=== PATIENT | female | born 1950 | race American Indian/Alaskan Native ===

== ENCOUNTER 2024-05-27 07:20 | Emergency (ER) | payer OTHER ==
[2024-05-27 07:29] VITALS: RESP 18; TEMP 98.6; BMI 28.0
[2024-05-27] MEDS ORDERED: ALBUTEROL SO4 2.5/IPRATROPIUM 0.5 INH SOL 3 ML VIAL.NEB. NEB ONE (07:48)
[2024-05-27] MEDS ORDERED: DEXAMETHASONE SOD PHOSPHATE 10 MG/1 ML VIAL ONE (07:48)
[2024-05-27 08:37] LABS: ABSOLUTE IMMATURE GRANULOCYTES 0.01 x10^3/uL (0.0-0.031); BASOPHILS # 0.05 x10^3/uL (0.01-0.08); EOSINOPHIL % 3.6 % (0.7-5.8); EOSINOPHILS # 0.35 x10^3/uL (0.04-0.36); HEMATOCRIT 42.7 % (34.1-44.9); HEMOGLOBIN 13.7 g/dL (11.2-15.7); MCHC 32.1 g/dl (32.2-35.5); MEAN CELL VOLUME 84.9 fl (79.4-94.8); MEAN PLT VOLUME 9.3 fl (9.4-12.3); MONOCYTE % 4.1 % (4.7-12.5); PLATELET COUNT 260 x10^3/uL (182-369); RDW 13.2 % (12.4-16.6)
[2024-05-27] MEDS: DEXAMETHASONE 4 MG TABLET (FP) PO ONE (08:38)
[2024-05-27] MEDS: ALBUTEROL SO4 2.5/IPRATROPIUM 0.5 INH SOL 3 ML VIAL.NEB. NEB ONE (08:38)
[2024-05-27 09:01] LABS: POTASSIUM 3.5 mmol/L (3.5-5.1)
[2024-05-27 09:03] LABS: CALCIUM 9.3 mg/dL (8.5-10.1)
[2024-05-27 09:04] LABS: ALBUMIN 3.6 g/dl (3.4-5.0); BLOOD UREA NITROGEN 13.8 mg/dL (7-18); MAGNESIUM 2.2 mg/dL (1.8-2.4)
[2024-05-27 09:07] LABS: CREATININE 0.7 mg/dL (0.55-1.3)
[2024-05-27 09:08] LABS: BILIRUBIN,TOTAL 0.5 mg/dL (0.2-1); TOT PROT 7.5 g/dl (6.4-8.2)
[2024-05-27] MEDS ORDERED: ASPIRIN 81 MG CHEWABLE TABLETS ONE (09:21)
[2024-05-27] MEDS: SODIUM CHLORIDE 1,000 ML IV STA (09:30)
[2024-05-27] MEDS: ASPIRIN 81 MG CHEWABLE TABLETS PO ONE (09:31)
[2024-05-27 09:49] LABS: INR 1.03 (0.83-1.09); PROTHROMBIN TIME (PATIENT) 11.2 SEC (9.7-13.0)
[2024-05-27] MEDS ORDERED: HEPARIN NA (PORCINE) 5,000 UNITS/ML 1ML VIAL IVPUSH PRN ×2 (09:49)
[2024-05-27 09:52] LABS: ACTIVATED PTT 32.5 SECONDS (25.2-36.5)
[2024-05-27] MEDS ORDERED: HEPARIN INFUSION - 25,000 UNITS/500 ML INFUS.BAG IVPB ONE (09:54)
[2024-05-27] MEDS ORDERED: HEPARIN - 25,000 UNIT in SODIUM CHLORIDE 495 ML IV SCH (10:00)
[2024-05-27] MEDS: HEPARIN INFUSION - 25,000 UNITS/500 ML INFUS.BAG IVPB SCH (10:46)
[2024-05-27] MEDS: HEPARIN NA (PORCINE) 5,000 UNITS/ML 1ML VIAL IVPUSH PRN (10:47)
[2024-05-27 10:57] VITALS: BP 122/70; PULSE 100
[2024-05-27 12:12] LABS: HIV INTERPRETATION NEGATIVE (NEGATIVE)
[2024-05-27 12:14] LABS: HCV DIAGNOSTIC IN-HOUSE W/RFLX NON-REACTIVE (NONREACTIVE)
== END 2024-05-27 11:15 | disposition short-term general hospital (02) ==
LOC: JER 07:20
PROC: 3E0F7GC Introduction of Other Therapeutic Substance into Respiratory Tract, Via Natural or Artificial Opening (ICD-10-PCS; principal; 2024-05-27)
PROC: 3E0337Z Introduction of Electrolytic and Water Balance Substance into Peripheral Vein, Percutaneous Approach (ICD-10-PCS; 2024-05-27)
DX: I21.3 ST elevation (STEMI) myocardial infarction of unspecified site (principal); I10 Essential (primary) hypertension; R06.02 Shortness of breath; R07.89 Other chest pain; R05.9 Cough, unspecified; J02.9 Acute pharyngitis, unspecified; R53.83 Other fatigue; R13.10 Dysphagia, unspecified
CPT/HCPCS: 0241U-QW; 36415; 71045-TC-FY; 80053; 82962; 83735; 84484; 85025; 85610; 85730; 86803; 86850; 86900; 86901; 87389; 93005; 93010; 99291; J1644